=== PATIENT | female | born 1950 | race Caucasian/White ===

== ENCOUNTER 2016-07-03 13:10 | Emergency (ER) | payer MEDICARE ==
[~2016-07-03] VITALS: Ht 160 cm; Wt 90.9 kg
[2016-07-03] VITALS (9 sets, daily range): BP systolic 126–150; BP diastolic 59–72; PULSE 89–100; RESP 14–19; TEMP 97.8–98.2; O2SAT 94–98
[2016-07-03] MEDS ORDERED: SODIUM CHLOR 0.9% 1000 ML INJ 1,000 ML IV ONE (13:29)
[2016-07-03] MEDS ORDERED: SODIUM CHLORIDE 0.9% FLUSH 5 ML FLUSH IVF PRN (13:30)
[2016-07-03] MEDS ORDERED: PROCHLORPERAZINE INJ 10 MG/2 ML VIAL IVP ONE (13:30)
--- NOTE | 2016-07-03 13:45 | PD ---
HPI Chief Complaint: Headache Time Seen by Provider: 13:29 Travel History International Travel<30 days: No Contact w/Intl Traveler<30days: No Traveled to known affect area: No History of Present Illness HPI 66-year-old female came to the emergency room with history of sudden onset of headache 12 hours ago. Patient says that she was bent down and praying when she felt a sudden severe pain at the back of her neck and head and it radiated to the front. Since then the pain has persisted. Pain was 10 out of 10 at the time of onset. Currently the pain is 8. Patient took one hydrocodone as well as her daily medications last night. No history of nausea vomiting. No history of syncope. No history of tinnitus. Vital signs were stable otherwise. No history of fever or chills. Patient never had a pain like this before. She told me she does not have headache on and regular basis. She does have other muscular skeletal pain issues. [facility] Past Medical History Narrative Medical List of her past medical history as reviewed from the nursing note. Arthritis: Yes Asthma: Yes Hypertension: Yes Thyroid Disease: Yes (hypo) Social History Alcohol Use: No Tobacco Use: No Substance Use: No Allergies-Medications (Allergen,Severity, Reaction): Coded Allergies: No Known Allergies (Unverified , 07/03/16) Comments No known drug allergies. Narrative Medication Awaiting for the nurse to do mental conciliation for the medication history Review of Systems Except as stated in HPI: all other systems reviewed are Neg Physical Exam Narrative GENERAL: Awake, alert, anxious, mild distress SKIN: Warm and dry. HEAD: Atraumatic. Normocephalic. EYES: Pupils equal and round. No scleral icterus. No injection or drainage. ENT: No nasal bleeding or discharge. Mucous membranes pink and moist. NECK: Trachea midline. No JVD. No neck stiffness CARDIOVASCULAR: Regular rate and rhythm. No murmur appreciated. RESPIRATORY: No accessory muscle use. Clear to auscultation. Breath sounds equal bilaterally. GASTROINTESTINAL: Abdomen soft, non-tender, nondistended. Hepatic and splenic margins not palpable. MUSCULOSKELETAL: No obvious deformities. No clubbing. No cyanosis. No edema. NEUROLOGICAL: Awake and alert. No obvious cranial nerve deficits. Motor grossly within normal limits. Normal speech. PSYCHIATRIC: Appropriate mood and affect; insight and judgment normal. Data Data Last Documented VS Vital Signs Date Time Temp Pulse Resp B/P Pulse Ox O2 Delivery O2 Flow Rate FiO2 07/03/16 13:38 18 98 Room Air 07/03/16 13:27 98.0 99 149/72 Orders Complete Blood Count With Diff (07/03/16 13:29) Basic Metabolic Panel (Bmp) (07/03/16 13:29) Ct Brain W/O Iv Contrast(Rout) (07/03/16 13:29) Ecg Monitoring (07/03/16 13:29) Iv Access Insert/Monitor (07/03/16 13:29) Oximetry (07/03/16 13:29) Sodium Chloride 0.9% Flush (Ns Flush) (07/03/16 13:30) Prochlorperazine Inj (Compazine Inj) (07/03/16 13:30) Sodium Chlor 0.9% 1000 Ml Inj (Ns 1000 M (07/03/16 13:29) Mri Brain W&W/O Contrast (07/03/16 ) Mra Brain W/O Contrast (Cow) (07/03/16 ) Prothrombin Time / Inr (Pt) (07/03/16 14:11) Type And Screen (07/03/16 14:14) Gadodiamide Pf Inj (Omniscan Pf Inj) (07/03/16 14:53) Labs Laboratory Tests Test 07/03/16 07/03/16 13:39 14:21 White Blood Count 10.1 TH/MM3 Red Blood Count 4.93 MIL/MM3 Hemoglobin 14.2 GM/DL Hematocrit 42.4 % Mean Corpuscular Volume 85.9 FL Mean Corpuscular Hemoglobin 28.8 PG Mean Corpuscular Hemoglobin 33.6 % Concent Red Cell Distribution Width 13.5 % Platelet Count 313 TH/MM3 Mean Platelet Volume 8.9 FL Neutrophils (%) (Auto) 80.1 % Lymphocytes (%) (Auto) 13.7 % Monocytes (%) (Auto) 5.5 % Eosinophils (%) (Auto) 0.2 % Basophils (%) (Auto) 0.5 % Neutrophils # (Auto) 8.1 TH/MM3 Lymphocytes # (Auto) 1.4 TH/MM3 Monocytes # (Auto) 0.6 TH/MM3 Eosinophils # (Auto) 0.0 TH/MM3 Basophils # (Auto) 0.0 TH/MM3 CBC Comment DIFF FINAL Differential Comment Sodium Level 137 MEQ/L Potassium Level 4.0 MEQ/L Chloride Level 105 MEQ/L Carbon Dioxide Level 22.6 MEQ/L Anion Gap 9 MEQ/L Blood Urea Nitrogen 14 MG/DL Creatinine 1.00 MG/DL Estimat Glomerular Filtration 55 ML/MIN Rate Random Glucose 113 MG/DL Calcium Level 8.8 MG/DL Prothrombin Time 11.0 SEC Prothromb Time International 1.0 RATIO Ratio Blood Type B POSITIVE Antibody Screen NEGATIVE Blood Bank Comment MDM Medical Decision Making Medical Screen Exam Complete: Yes Emergency Medical Condition: Yes Medical Record Reviewed: Yes Differential Diagnosis Intracranial bleed, subarachnoid bleed, headache NOS Narrative Course 1:44 PM awaiting for the blood test result and the CAT scan to be done and resulted. I have given her Compazine and IV fluid for the headache. 2:12 PM radiologist called me to let me note that the CT shows intracranial mass with bleed. As per the radiologist it could be either a bleed from the mass or a large aneurysm. He recommends an MRI with and without contrast of the brain plus and MRA. I have put in the order. I put a call out for the neurosurgeon and the specialties operator. I will discuss this with the patient as well as her son. 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 I have been in touch with the Neurosurgeon over the phone on numerous occasions regarding this case before and after the MRI. I have been updating the patient and her about these conversations and answering all their questions to the aminah of my ability. Recently I was told by the unit manager [employer] that Dr. Koenig from neurosurgery would like this patient to be transferred to [facility] in [place]. He spoke with the neurosurgeon there who has accepted the case. The neurosurgeon is Dr. Malik I was told. Patient will be transferred by ground. She continues to be hemodynamically stable and GCS of 15. All this has been mentioned to the patient and she is been kept up-to-date about the progress of her case. Critical Care Narrative Aggregate critical care time was 75 minutes. Time to perform other separately billable procedures was not included in the critical care time. My time did not include minutes spent treating any other patients simultaneously or on activities that did not directly contribute to the patient's treatment. The services I provided to this patient were to treat and/or prevent clinically significant deterioration that could result in: Headache, intracranial bleed, large AV malformation, transfer I provided critical care services requiring my management, as noted below: Chart data review, documentation time, medication orders and management, vital sign assessments/reviewing monitor data, ordering and reviewing lab tests, ordering and interpreting/reviewing x-rays and diagnostic studies, care of the patient and discussion of the patient with the admitting physicians. Procedures EKG Prior to Arrival: No Physician Communication Physician Communication Dr. Koenig Diagnosis Primary Impression: Intracranial mass Additional Impressions: Headache Qualified Code: G44.53 - Primary thunderclap headache Subarachnoid hemorrhage Disposition: 70 TRANSFER TO OTHER FACILITY Khalif Jara MD Jul 03, 2016 13:45
[2016-07-03 13:56] LABS: AUTOMATED NEUTROPHIL # 8.1 TH/MM3 (1.8-7.7); BASOPHIL % 0.5 % (0.0-2.0); EOSINOPHIL % 0.2 % (0.0-4.0); HEMATOCRIT 42.4 % (35.0-46.0); HEMO FLAGS DIFF FINAL; LYMPH % 13.7 % (9.0-44.0); LYMPHOCYTE # 1.4 TH/MM3 (1.0-4.8); MEAN CELL VOLUME 85.9 FL (80.0-100.0); MEAN CORPUSCULAR HEMOGLOBIN 28.8 PG (27.0-34.0); MEAN CORPUSCULAR HGB CONC 33.6 % (32.0-36.0); MONO % 5.5 % (0.0-8.0); NEUT % 80.1 % (16.0-70.0); PLATELET COUNT 313 TH/MM3 (150-450); RED BLOOD COUNT 4.93 MIL/MM3 (4.00-5.30); RED CELL DISTRIBUTION WIDTH 13.5 % (11.6-17.2); WHITE BLOOD COUNT 10.1 TH/MM3 (4.0-11.0)
[2016-07-03 14:09] LABS: BICARBONATE 22.6 MEQ/L (21.0-32.0)
--- NOTE | 2016-07-03 14:26 | RADRPT ---
EXAM DATE/TIME: 07/03/2016 13:45 [facility] COMPARISON: No previous studies available for comparison. INDICATIONS : Posterior head and neck pain with dizziness and nausea for 1 day. RADIATION DOSE: 56.77 CTDIvol (mGy) MEDICAL HISTORY : Hypertension. SURGICAL HISTORY : None. ENCOUNTER: Initial ACUITY: 1 day PAIN SCALE: 10/10 LOCATION: posterior cranial TECHNIQUE: Multiple contiguous axial images were obtained of the head. Using automated exposure control and adj ustment of the mA and/or kV according to patient size, radiation dose was kept as low as reasonably a chievable to obtain optimal diagnostic quality images. FINDINGS: There is a hyperdense mass like density within the right frontal lobe with scattered calcifications m edially. This lesion measures at least 4.5 x 4.3 cm. There is also extension of this lesion into the extra-axial spaces along the anterior aspect of the right middle cranial fossa. This particular exte nsion measures 2.6 x 2.5 cm. There is also extension into the extra-axial spaces within the frontal lobes bilaterally (right more prominent than left) and measuring 5 mm in thickness in the right front al region and 3 mm in thickness in the left frontal region. There is also hyperdensity within the exp ected region of the right sylvian fissure raising the possibility of acute subarachnoid hemorrhage or extension of mass. Differential diagnosis includes neoplasm, vascular malformation or ruptured aneur ysm. MRI of the brain with and without contrast as well as MRA would be helpful for further characte rization of this finding. There is subfalcine herniation to the left measuring 5 mm. The findings we re discussed with Dr. Jara at 2:11pm on 07/03/2016. CONCLUSION: Hyperdense mass like lesion within the right frontal lobe with extension to the extra-axial spaces al bryan the anterior aspect of the right middle cranial fossa and within the frontal regions bilaterally as described above. There is also hyperdensity within the expected region of the sylvian fissure on t he right. Differential diagnosis includes intra-axial neoplasm with spread to the extra-axial spaces, vascular malformation or ruptured aneurysm with associated bleeding into the extra-axial spaces. T here is subfalcine herniation to the left measuring 5 mm. MRI of the brain with and without contrast as well as MRA of the brain may be helpful for further evaluation of this finding. The findings wer e discussed with Dr. Jara at 2:11pm on 07/03/2016. Will Davison MD on July 03, 2016 at 13:56 Board Certified Radiologist. This report was verified electronically.
[2016-07-03] MEDS ORDERED: GADODIAMIDE PF 287 MG/ML 5 ML VIAL (for RAD MRI) IV ONE (14:53)
[2016-07-03] MEDS ORDERED: GADODIAMIDE PF 287 MG/ML 20 ML VIAL (for RAD MRI) IV ONE (15:39)
[2016-07-03] MEDS ORDERED: ONDANSETRON HCL 4 MG/2 ML VIAL IV PUSH ONE (16:00)
[2016-07-03] MEDS ORDERED: MORPHINE SULFATE 4 MG/ML INJ IV PUSH ONE (16:00)
--- NOTE | 2016-07-03 16:53 | RADRPT ---
EXAM DATE/TIME: 07/03/2016 15:04 [facility] COMPARISON: CT BRAIN W/O CONTRAST, July 03, 2016, 13:45. INDICATIONS : Cephalgia. Abnormal CT. CONTRAST: 18 cc Omniscan (gadodiamide) IV MEDICAL HISTORY : Hypertension. SURGICAL HISTORY : Cyst removed from tailbone, breast reduction ENCOUNTER: Initial ACUITY: 1 day PAIN SCORE: 3/10 LOCATION: cranial TECHNIQUE: Multiplanar, multisequence MRI of the brain was performed both prior to and following the administrat ion of paramagnetic contrast. FINDINGS: There is an arteriovenous malformation with nidus measuring 2.8 x 2.4 CM in the right frontal lobe di rectly adjacent to the frontal horn of right lateral ventricle. The venous drainage is via both the s phenoparietal sinus as well as a cortical draining vein anteriorly to the superior sagittal sinus. Th e internal cerebral vein and straight sinus are normal in caliber. There are multiple venous pseudoan eurysms present the largest in the sphenoparietal sinus measuring 1.2 cm. There is mass effect from t he arterial venous malformation on the frontal horn as well as minimal midline shift from right to le ft but no signs of herniation. Diffusion weighted images demonstrate no abnormality. Posterior fossa structures are unremarkable. CONCLUSION: 1. 2.8 cm terminus now formation the right frontal lobe with venous changes above. There is mass effe ct and midline shift but no evidence of acute hemorrhage. Ehsan Ruano MD on July 03, 2016 at 16:43 Board Certified Radiologist. This report was verified electronically.
--- NOTE | 2016-07-03 16:58 | RADRPT ---
EXAM DATE/TIME: 07/03/2016 15:04 [facility] COMPARISON: No previous studies available for comparison. INDICATIONS : Cephalgia. Abnormal CT. MEDICAL HISTORY : Hypertension. SURGICAL HISTORY : Cyst removed from tailbone, breast reduction ENCOUNTER: Initial ACUITY: 1 day PAIN SCORE: 3/10 LOCATION: cranial Please note a normal MRA of the brain does not entirely exclude the possibility of a small aneurysm, nor the possibility of distal intracranial vessel disease. TECHNIQUE: 3D time of flight MRA was performed. Source images, multiplanar STS MIP, and 3D volume MIP reconstru ctions were reviewed. FINDINGS: There is arteriovenous malformation with predominate blood supply via the anterior tree of artery on the right side without evidence of arterial aneurysm. The venous drainage is to the sphenoparietal si nus as well as to the cortical veins and superior sagittal sinus with multiple venous pseudoaneurysms present. Largest pseudoaneurysm measures 1.2 cm. The left middle cerebral artery territory appears n ormal. Examination of posterior fossa also demonstrates no evidence of aneurysm or vascular malformation. Th e vertebral arteries are codominant. There are patent posterior communicating arteries bilaterally. CONCLUSION: 1. 2.8 cm venous malformation in the right frontal lobe with arterial supply via the anterior cerebra l artery. Venous drainage is superficial to the sphenoparietal sinus and cortical veins to the superi or sagittal sinus. 2. No arterial aneurysms though multiple venous pseudoaneurysms. Ehsan Ruano MD on July 03, 2016 at 16:52 Board Certified Radiologist. This report was verified electronically.
[2016-07-03] MEDS ORDERED: niCARdipine INJ 25 MG in SODIUM CHLOR 0.9% 250 ML INJ 250 ML IV SCH (17:15)
--- NOTE | 2016-07-03 19:39 | PD.CONS ---
History of Present Illness Service Neurosurgery Consult Requested By Emergency room physicians Reason for Consult Subarachnoid hemorrhage Primary Care Physician Jeimy Yanes MD Diagnoses: History of Present Illness Pleasant 66-year-old lady who states that last evening she experienced acute onset of extremely severe headache accompanied by nausea without emesis. She was not straining or coughing excessively prior to the event. She has had no fevers or chills. No complaint of blurred vision, diplopia, hearing loss, tinnitus. No weakness numbness or paresthesias in the extremities. She presented to the emergency room today with initial CT scan revealing findings significant for primarily right frontotemporal subarachnoid hemorrhage and AVM. She denies history of previous headaches or neurologic disorders. Review of Systems Constitutional: DENIES: Fatigue, Fever Eyes: DENIES: Blurred vision, Diplopia, Vision loss Ears, nose, mouth, throat: DENIES: Vertigo Respiratory: DENIES: Cough, Wheezing Cardiovascular: DENIES: Chest pain, Palpitations Gastrointestinal: COMPLAINS OF: Nausea, DENIES: Abdominal pain, Constipation, Diarrhea, Vomiting Musculoskeletal: DENIES: Joint pain, Muscle aches Neurologic: COMPLAINS OF: Headache Psychiatric: DENIES: Anxiety, Confusion Past Family Social History Allergies: Coded Allergies: No Known Allergies (Unverified , 07/03/16) Past Medical History Asthma arthritis Hypothyroidism Hypertension Past Surgical History No major surgeries reported Reported Medications Antihypertensive medications Family History Positive CVA in her grandmother. No history of aneurysms, neurologic disorders. No history of coronary artery disease Social History Does not smoke cigarettes or drink alcohol Physical Exam Vital Signs Vital Signs Date Time Temp Pulse Resp B/P Pulse Ox O2 Delivery O2 Flow Rate FiO2 07/03/16 19:12 91 16 135/68 100 07/03/16 18:53 95 18 126/59 94 Room Air 07/03/16 18:21 92 18 135/63 95 Room Air 07/03/16 17:59 89 18 140/66 96 Room Air 07/03/16 16:57 97 18 135/62 94 Room Air 07/03/16 16:01 98.2 92 19 147/59 96 Room Air 07/03/16 13:38 18 98 Room Air 07/03/16 13:27 98.0 99 18 149/72 95 Room Air 07/03/16 13:23 95 18 96 Room Air 07/03/16 13:12 97.8 100 14 150/71 94 Room Air Physical Exam GENERAL: This is a well-nourished, well-developed patient, in no apparent distress. SKIN: No rashes, ecchymoses or lesions. HEAD: Normocephalic, nontender EYES: Sclerae are clear and nonicteric. No periorbital edema or ecchymosis ENT: No CSF otorrhea or rhinorrhea. No facial fracture or deformity NECK: Supple, mild tenderness no meningeal signs. CARDIOVASCULAR: Regular rate and rhythm without murmurs, gallops, or rubs. RESPIRATORY: Clear to auscultation. Breath sounds equal bilaterally. No wheezes , rales, or rhonchi. GASTROINTESTINAL: Abdomen soft, non-tender, nondistended. No hepato-splenomegaly , or palpable masses. No guarding. Normal bowel sounds MUSCULOSKELETAL: Extremities without cyanosis, or edema. No joint tenderness, effusion, or edema noted. No calf tenderness. Posterior tibial pulse 2+ bilateral NEUROLOGICAL: Awake and alert Oriented X 3 Speech is clear Conversant and appropriate Follow simple commands well Answers questions appropriately Reasonable judgment and insight Recent and remote memory are intact No evidence of anxiety or depression Pupils are equal and reactive to accommodation. Extra-ocular movements, visual thurman to confrontation, facial sensorimotor, tongue, palate, sternocleidomastoid testing, hearing to finger rub testing on the right but not the left, and bilateral shoulder shrug are all intact. Sensation is intact to light touch in all extremities Strength normal major flexion and extension groups all extremities Joaquin's absent bilaterally No ankle clonus Plantar responses absent bilateral Fine motor movements intact upper extremities Laboratory Laboratory Tests Test 07/03/16 07/03/16 13:39 14:21 White Blood Count 10.1 Red Blood Count 4.93 Hemoglobin 14.2 Hematocrit 42.4 Mean Corpuscular Volume 85.9 Mean Corpuscular Hemoglobin 28.8 Mean Corpuscular Hemoglobin 33.6 Concent Red Cell Distribution Width 13.5 Platelet Count 313 Mean Platelet Volume 8.9 Neutrophils (%) (Auto) 80.1 Lymphocytes (%) (Auto) 13.7 Monocytes (%) (Auto) 5.5 Eosinophils (%) (Auto) 0.2 Basophils (%) (Auto) 0.5 Neutrophils # (Auto) 8.1 Lymphocytes # (Auto) 1.4 Monocytes # (Auto) 0.6 Eosinophils # (Auto) 0.0 Basophils # (Auto) 0.0 CBC Comment DIFF FINAL Differential Comment Sodium Level 137 Potassium Level 4.0 Chloride Level 105 Carbon Dioxide Level 22.6 Anion Gap 9 Blood Urea Nitrogen 14 Creatinine 1.00 Estimat Glomerular Filtration 55 Rate Random Glucose 113 Calcium Level 8.8 Prothrombin Time 11.0 Prothromb Time International 1.0 Ratio Blood Type B POSITIVE Antibody Screen NEGATIVE Blood Bank Comment Result Diagram: 07/03/16 1339 07/03/16 [address] scan of the head as well as MRI and MRA of the brain images are all reviewed by the undersigned. Agree with findings as noted below. Mostly local mass effect with mild midline shift. Cisterns are not effaced and no significant ventricular asymmetry. Head CT 07/03/16 1329 Signed Impressions: Service Date/Time: June 13:45 - CONCLUSION: Hyperdense mass like lesion within the right frontal lobe with extension to the extra- axial spaces along the anterior aspect of the right middle cranial fossa and within the frontal regions bilaterally as described above. There is also hyperdensity within the expected region of the sylvian fissure on the right. Differential diagnosis includes intra-axial neoplasm with spread to the extra-axial spaces, vascular malformation or ruptured aneurysm with associated bleeding into the extra-axial spaces. There is subfalcine herniation to the left measuring 5 mm. MRI of the brain with and without contrast as well as MRA of the brain may be helpful for further evaluation of this finding. The findings were discussed with Dr. Jara at 2:11pm on 07/03/2016. Will Davison MD Head Magnetic Resonance Angiography 07/03/16 0000 Signed Impressions: Service Date/Time: June 15:04 - CONCLUSION: 1. 2.8 cm venous malformation in the right frontal lobe with arterial supply via the anterior cerebral artery. Venous drainage is superficial to the sphenoparietal sinus and cortical veins to the superior sagittal sinus. 2. No arterial aneurysms though multiple venous pseudoaneurysms. Ehsan Ruano MD Brain MRI 07/03/16 0000 Signed Impressions: Service Date/Time: June 15:04 - CONCLUSION: 1. 2.8 cm terminus now formation the right frontal lobe with venous changes above. There is mass effect and midline shift but no evidence of acute hemorrhage. Ehsan Ruano MD Assessment and Plan Assessment and Plan Impression: 1. Right frontal arteriovenous malformation with imaging findings as noted above. 2. Mild right frontotemporal subarachnoid hemorrhage 3. History of hypertension Plan: Findings were discussed at length with the patient and her family in the emergency room. Gen. treatment options discussed. After transfer to a tertiary care facility for further evaluation and treatment discussed, and she is in agreement with this plan. I discussed the patient with neurosurgery at [facility], were patient has been accepted for transfer this evening. Nicardipine IV infusion ordered as needed for controlled systolic blood pressure to less than 130. Patient appears neurologically stable for transfer Christos Koenig MD Jul 03, 2016 19:39
[2016-07-18] MEDS ORDERED: TIZA4CAP3 PO (16:34)
[2016-07-18] MEDS ORDERED: BUDE0.5S NEB (16:34)
[2016-07-18] MEDS ORDERED: LEVO112T2 PO (16:34)
[2016-07-18] MEDS ORDERED: OXYC1CAP PO (16:34)
[2016-07-18] MEDS ORDERED: FEXO60TA PO (16:34)
[2016-07-18] MEDS ORDERED: ACET-703 PO (16:34)
[2016-07-18] MEDS ORDERED: OMEP20TA PO (16:34)
[2016-07-18] MEDS ORDERED: COLA100C3 PO (16:34)
[2016-07-18] MEDS ORDERED: MELA3TAB PO (16:34)
[2016-07-18] MEDS ORDERED: MELA3CAP (16:34)
[2016-07-18] MEDS ORDERED: LEVE500 PO (16:34)
[2016-07-18] MEDS ORDERED: AMLO10 PO (16:34)
[2016-07-18] MEDS ORDERED: ARTIDRO EACH EYE (16:34)
[2016-07-18] MEDS ORDERED: LOSA100T PO (16:34)
[2016-07-18] MEDS ORDERED: DEXA2TAB PO (16:34)
[2016-07-18] MEDS ORDERED: BACI500O61 TOPICAL (16:34)
[2016-07-18] MEDS ORDERED: LABE200T2 PO (16:34)
[2016-07-18] MEDS ORDERED: IPRASOL INH (16:34)
[2016-07-18] MEDS ORDERED: MILKSUS PO (16:34)
[2016-07-29] MEDS ORDERED: Walker with seat (13:02)
[2016-07-29] MEDS ORDERED: WHEEMIS3 (13:02)
[2016-07-29] MEDS ORDERED: COMMODE 3-IN-11 MIS (13:02)
[2016-07-31] MEDS ORDERED: LABE100T2 PO (09:13)
[2016-07-31] MEDS ORDERED: BACI500O2 TOP (09:13)
[2016-07-31] MEDS ORDERED: Artificial Tears Opth Soln EACH EYE (09:13)
[2016-07-31] MEDS ORDERED: DOCU1CAP39 PO (09:13)
[2016-07-31] MEDS ORDERED: AMLO10 PO (09:13)
[2016-07-31] MEDS ORDERED: SYNT112T PO (09:13)
[2016-07-31] MEDS ORDERED: PANT20 PO (09:13)
[2016-07-31] MEDS ORDERED: LEVE500 PO (09:13)
[2016-07-31] MEDS ORDERED: VENTAER INH (09:14)
== END 2016-07-03 19:15 | disposition short-term general hospital (02) ==
LOC: NEPC 13:10 → NEDA 14:56 → UNDOADMIN 14:56 → UNDODISIN 19:07 → NEDA 19:15
DX: G44.53 Primary thunderclap headache (principal); I10 Essential (primary) hypertension; J45.909 Unspecified asthma, uncomplicated; Q28.3 Other malformations of cerebral vessels; I60.9 Nontraumatic subarachnoid hemorrhage, unspecified
CPT/HCPCS: 70450; 70544; 70553; 80048; 85025; 85610; 86850; 86900; 86901; 96361; 96374; 99291; 99292; A9579; J0780; J2270; J2405; J7030; J7050

== ENCOUNTER 2016-08-05 15:39 | Emergency (ER) | payer MEDICARE ==
[~2016-08-05] VITALS: Ht 160 cm; Wt 87.5 kg
[~2016-08-05 15:39] MED LIST: ACET-703 PO; AMLO10 PO; Artificial Tears Opth Soln EACH EYE; BACI500O2 TOP; BUDE0.5S NEB; COMMODE 3-IN-11 MIS; DEXA2TAB PO; DOCU1CAP39 PO; FEXO60TA PO; IPRASOL INH; LABE100T2 PO; LABE200T2 PO; LEVE500 PO; LOSA100T PO; MELA3TAB PO; MILKSUS PO; OXYC1CAP PO; PANT20 PO; SYNT112T PO; TIZA4CAP3 PO; VENTAER INH; WHEEMIS3; Walker with seat
[2016-08-05 15:41] VITALS: BP 135/68; PULSE 97; RESP 16; TEMP 97.6; O2SAT 95
--- NOTE | 2016-08-05 16:33 | PD ---
HPI Chief Complaint: Pain: Acute or Chronic Time Seen by Provider: 16:25 Travel History International Travel<30 days: No Contact w/Intl Traveler<30days: No Traveled to known affect area: No History of Present Illness HPI Patient is a 66-year-old female presenting to emergency evaluation of a right leg DVT. Patient reports that she developed pain in her leg on , she described as throbbing. She reports the pain is a 3-4 out of 10 and constant. Patient had an outpatient ultrasound ordered by her primary doctor, Dr. Suazo. Patient presented to the emergency department with a report that shows her right lower leg DVT. Patient denies any chest pain, shortness of breath, palpitations. Patient had surgery approximately one month ago and had been in rehabilitation. PFSH Past Medical History Arthritis: Yes Asthma: Yes (allergy induced) Autoimmune Disease: No Anxiety: No Depression: No Heart Rhythm Problems: No Cancer: No High Cholesterol: No Chemotherapy: No Chest Pain: No Congestive Heart Failure: No COPD: No Cerebrovascular Accident: Yes Diabetes: No Endocrine: Yes GERD: No Genitourinary: No Hiatal Hernia: No Hypertension: Yes Immune Disorder: No Neurologic: Yes (frontal AVM grade 2) Psychiatric: No Reproductive: No Respiratory: Yes Migraines: No Radiation Therapy: No Seizures: Yes Sleep Apnea: No Thyroid Disease: Yes (hypothyroidism) Ulcer: No ?: Not Past Surgical History Abdominal Surgery: No AICD: No Arteriovenous Shunt: No Cardiac Surgery: No Ear Surgery: No Endocrine Surgery: No Eye Surgery: No Genitourinary Surgery: No Gynecologic Surgery: No Insulin Pump: No Joint Replacement: No Neurologic Surgery: Yes (embolism of AVM, status post craniotomy) Oral Surgery: No Pacemaker: No Thoracic Surgery: No Other Surgery: Yes (pilonidal cyst, breast reduction) Social History Alcohol Use: No Tobacco Use: No Substance Use: No Allergies-Medications (Allergen,Severity, Reaction): Coded Allergies: Avocado (Verified Allergy, Mild, Nausea/Vomiting, 08/05/16) Reported Meds & Prescriptions Reported Meds & Active Scripts Active Ventolin Hfa 18 GM Inh (Albuterol Sulfate) 90 Mcg/Act Aer 2 Puff INH Q4-6H PRN 30 Days Synthroid (Levothyroxine Sodium) 112 Mcg Tab 112 Mcg PO 0600 30 Days Keppra (Levetiracetam) 500 Mg Tab 500 Mg PO Q12HR 30 Days continue until stopped by Dr. Malik Labetalol (Labetalol HCl) 100 Mg Tab 25 Mg PO BID 14 Days check blood pressure and heart rate 30 min prior to giving hold medication if systolic blood pressure < 110 or heart rate <70 Dok (Docusate Sodium) 100 Mg Cap 100 Mg PO BID 30 Days Bacitracin Topical 500 Unit/Gm Oint 1 Applic TOP Q12HR 10 Days [Artificial Tears Opth Soln] 300 DROP/15 ML Soln 2 Drop EACH EYE QID PRN 30 Days Norvasc (Amlodipine Besylate) 10 Mg Tab 10 Mg PO DAILY 30 Days Reported Vitamin D (Ergocalciferol) 50,000 Unit Cap 50,000 Units PO Q7D Tylenol Extra Strength (Acetaminophen) 500 Mg Tab 500 Mg PO Q4HR PRN Review of Systems Except as stated in HPI: all other systems reviewed are Neg Musculoskeletal: Positive: Myalgias, Edema, Pain Physical Exam Narrative GENERAL: Well-developed, well-nourished, alert female. Resting comfortably in no acute distress. SKIN: Warm and dry. HEAD: Atraumatic. Normocephalic. EYES: Pupils equal and round. No scleral icterus. No injection or drainage. ENT: No nasal bleeding or discharge. Mucous membranes pink and moist. NECK: Trachea midline. No JVD. CARDIOVASCULAR: Regular rate and rhythm. No murmur appreciated. RESPIRATORY: No accessory muscle use. Clear to auscultation. Breath sounds equal bilaterally. GASTROINTESTINAL: Abdomen soft, non-tender, nondistended. Hepatic and splenic margins not palpable. MUSCULOSKELETAL: No obvious deformities. No clubbing. No cyanosis. No edema. Positive pedal pulses bilaterally, positive Homans sign on the right. No erythema noted. NEUROLOGICAL: Awake and alert. No obvious cranial nerve deficits. Motor grossly within normal limits. Normal speech. PSYCHIATRIC: Appropriate mood and affect; insight and judgment normal. Data Data Last Documented VS Vital Signs Date Time Temp Pulse Resp B/P Pulse Ox O2 Delivery O2 Flow Rate FiO2 08/05/16 17:50 84 18 127/63 98 Room Air 08/05/16 15:41 97.6 Orders Complete Blood Count With Diff (08/05/16 16:10) Comprehensive Metabolic Panel (08/05/16 16:10) Act Partial Throm Time (Ptt) (08/05/16 16:10) Prothrombin Time / Inr (Pt) (08/05/16 16:10) Rivaroxaban (Xarelto) (08/05/16 19:15) Labs Laboratory Tests Test 08/05/16 16:26 White Blood Count 5.5 TH/MM3 Red Blood Count 4.01 MIL/MM3 Hemoglobin 12.2 GM/DL Hematocrit 36.2 % Mean Corpuscular Volume 90.2 FL Mean Corpuscular Hemoglobin 30.4 PG Mean Corpuscular Hemoglobin 33.7 % Concent Red Cell Distribution Width 16.2 % Platelet Count 236 TH/MM3 Mean Platelet Volume 8.1 FL Neutrophils (%) (Auto) 63.6 % Lymphocytes (%) (Auto) 21.9 % Monocytes (%) (Auto) 11.2 % Eosinophils (%) (Auto) 2.9 % Basophils (%) (Auto) 0.4 % Neutrophils # (Auto) 3.5 TH/MM3 Lymphocytes # (Auto) 1.2 TH/MM3 Monocytes # (Auto) 0.6 TH/MM3 Eosinophils # (Auto) 0.2 TH/MM3 Basophils # (Auto) 0.0 TH/MM3 CBC Comment DIFF FINAL Differential Comment Prothrombin Time 10.4 SEC Prothromb Time International 0.9 RATIO Ratio Activated Partial 24.4 SEC Thromboplast Time Sodium Level 143 MEQ/L Potassium Level 3.7 MEQ/L Chloride Level 108 MEQ/L Carbon Dioxide Level 23.9 MEQ/L Anion Gap 11 MEQ/L Blood Urea Nitrogen 15 MG/DL Creatinine 0.75 MG/DL Estimat Glomerular Filtration 77 ML/MIN Rate Random Glucose 82 MG/DL Calcium Level 8.9 MG/DL Total Bilirubin 0.8 MG/DL Aspartate Amino Transf 25 U/L (AST/SGOT) Alanine Aminotransferase 37 U/L (ALT/SGPT) Alkaline Phosphatase 64 U/L Total Protein 6.7 GM/DL Albumin 3.2 GM/DL MDM Medical Decision Making Medical Screen Exam Complete: Yes Emergency Medical Condition: Yes Interpretation(s) Vital Signs Date Time Temp Pulse Resp B/P Pulse Ox O2 Delivery O2 Flow Rate FiO2 08/05/16 15:41 97.6 97 16 135/68 95 Differential Diagnosis DVT versus coagulopathy versus hemorrhage versus PE versus other Narrative Course Patient is a 66-year-old female presenting to the emergency room for evaluation of a right leg DVT that was diagnosed as outpatient. Patient has been on bedrest, she had been diagnosed with a frontal AVM grade 2 and on July 07 underwent embolization of the AVM, on July 08 she had a craniotomy for resection of the right frontoparietal AVM. Patient subsequently went to [facility] and recently was discharged. Labs ordered and pending. Ultrasound of the right lower leg ordered and pending. Workup initiated in triage, care patient will be transferred to provider but a medical bed is available. Emily Fontaine Aug 05, 2016 16:33
[2016-08-05 17:03] LABS: AUTOMATED NEUTROPHIL # 3.5 TH/MM3 (1.8-7.7); BASOPHIL % 0.4 % (0.0-2.0); EOSINOPHIL # 0.2 TH/MM3 (0-0.4); EOSINOPHIL % 2.9 % (0.0-4.0); HEMATOCRIT 36.2 % (35.0-46.0); HEMO FLAGS DIFF FINAL; LYMPH % 21.9 % (9.0-44.0); LYMPHOCYTE # 1.2 TH/MM3 (1.0-4.8); MEAN CELL VOLUME 90.2 FL (80.0-100.0); MEAN CORPUSCULAR HEMOGLOBIN 30.4 PG (27.0-34.0); MEAN CORPUSCULAR HGB CONC 33.7 % (32.0-36.0); MONO % 11.2 % (0.0-8.0); NEUT % 63.6 % (16.0-70.0); PLATELET COUNT 236 TH/MM3 (150-450); RED BLOOD COUNT 4.01 MIL/MM3 (4.00-5.30); RED CELL DISTRIBUTION WIDTH 16.2 % (11.6-17.2); WHITE BLOOD COUNT 5.5 TH/MM3 (4.0-11.0)
[2016-08-05 17:08] LABS: APTT (PATIENT) 24.4 SEC (24.3-30.1); INTERNATIONAL NORMALIZED RATIO 0.9 RATIO; PROTHROMBIN TIME - PATIENT 10.4 SEC (9.8-11.6)
[2016-08-05 17:34] LABS: ALKALINE PHOSPHATASE 64 U/L (45-117); TOTAL BILIRUBIN ADULT 0.8 MG/DL (0.2-1.0)
[2016-08-05] MEDS ORDERED: ERGO1CAP10 PO (17:35)
[2016-08-05 17:47] LABS: ALT (GPT) 37 U/L (10-53); ANION GAP 11 MEQ/L (5-15); AST (GOT) 25 U/L (15-37); BICARBONATE 23.9 MEQ/L (21.0-32.0); BLOOD UREA NITROGEN 15 MG/DL (7-18); CHLORIDE 108 MEQ/L (98-107); GLOMERULAR FILTRATION RATE 77 ML/MIN (>89); POTASSIUM 3.7 MEQ/L (3.5-5.1); SODIUM (NA) 143 MEQ/L (136-145)
[2016-08-05 17:50] VITALS: BP 127/63; PULSE 84; RESP 18; O2SAT 98
[2016-08-05] MEDS ORDERED: RIVAROXABAN 20 MG TAB PO ONE (19:15)
--- NOTE | 2016-08-05 19:16 | PD ---
Physical Exam Narrative Pt was initially seen at triage and send to medical bed when available. 66yo F with PMH of recent brain surgery s/p rehab presents to the ED with DVT in right calf. Pt has been having right calf pain for 3-4 days and had ultrasound of right lower extremity that showed subacute occlusive DVT in peroneal veins of the right calf. Pt denies any chest pain, sob, fever, n/v, abdominal pain, focal weakness or numbness. GENERAL: 66yo F not in distress. SKIN: Warm and dry. NECK: Trachea midline. No JVD. CARDIOVASCULAR: Regular rate and rhythm. No murmur appreciated. RESPIRATORY: No accessory muscle use. Clear to auscultation. Breath sounds equal bilaterally. GASTROINTESTINAL: Abdomen soft, non-tender, nondistended. MUSCULOSKELETAL: RLE: +TTP right calf. No erythema or signs of infection. Distal pulses intact. NEUROLOGICAL: Awake and alert. No obvious cranial nerve deficits. Motor grossly within normal limits. Normal speech. PSYCHIATRIC: Appropriate mood and affect; insight and judgment normal. Pt was given xarelto 20mg PO in the ED. I discussed this case with Dr. Laws and he states that the patient can follow up with him tomorrow in his office and he will give him the xarelto in his office. States I do not have to give any prescriptions. Return precautions given. Data Data Last Documented VS Vital Signs Date Time Temp Pulse Resp B/P Pulse Ox O2 Delivery O2 Flow Rate FiO2 08/05/16 17:50 84 18 127/63 98 Room Air 08/05/16 15:41 97.6 Orders Complete Blood Count With Diff (08/05/16 16:10) Comprehensive Metabolic Panel (08/05/16 16:10) Act Partial Throm Time (Ptt) (08/05/16 16:10) Prothrombin Time / Inr (Pt) (08/05/16 16:10) Rivaroxaban (Xarelto) (08/05/16 19:15) Labs Laboratory Tests Test 08/05/16 16:26 White Blood Count 5.5 TH/MM3 Red Blood Count 4.01 MIL/MM3 Hemoglobin 12.2 GM/DL Hematocrit 36.2 % Mean Corpuscular Volume 90.2 FL Mean Corpuscular Hemoglobin 30.4 PG Mean Corpuscular Hemoglobin 33.7 % Concent Red Cell Distribution Width 16.2 % Platelet Count 236 TH/MM3 Mean Platelet Volume 8.1 FL Neutrophils (%) (Auto) 63.6 % Lymphocytes (%) (Auto) 21.9 % Monocytes (%) (Auto) 11.2 % Eosinophils (%) (Auto) 2.9 % Basophils (%) (Auto) 0.4 % Neutrophils # (Auto) 3.5 TH/MM3 Lymphocytes # (Auto) 1.2 TH/MM3 Monocytes # (Auto) 0.6 TH/MM3 Eosinophils # (Auto) 0.2 TH/MM3 Basophils # (Auto) 0.0 TH/MM3 CBC Comment DIFF FINAL Differential Comment Prothrombin Time 10.4 SEC Prothromb Time International 0.9 RATIO Ratio Activated Partial 24.4 SEC Thromboplast Time Sodium Level 143 MEQ/L Potassium Level 3.7 MEQ/L Chloride Level 108 MEQ/L Carbon Dioxide Level 23.9 MEQ/L Anion Gap 11 MEQ/L Blood Urea Nitrogen 15 MG/DL Creatinine 0.75 MG/DL Estimat Glomerular Filtration 77 ML/MIN Rate Random Glucose 82 MG/DL Calcium Level 8.9 MG/DL Total Bilirubin 0.8 MG/DL Aspartate Amino Transf 25 U/L (AST/SGOT) Alanine Aminotransferase 37 U/L (ALT/SGPT) Alkaline Phosphatase 64 U/L Total Protein 6.7 GM/DL Albumin 3.2 GM/DL MDM Supervised Visit with ZAC: Yes Diagnosis Primary Impression: DVT (deep venous thrombosis) Qualified Code: I82.4Z1 - Deep vein thrombosis (DVT) of distal vein of right lower extremity, unspecified chronicity Referrals: Reji Lakhani MD Patient Instructions: General Instructions Departure Forms: Tests/Procedures Additional Instruction: Please follow up with Dr. Laws tomorrow. Return to the ED if you have any chest pain, sob or any other concerning symptoms. Med/Other Pt SpecificInfo: No Change to Meds Disposition: 01 DISCHARGE HOME Condition: Stable Bebe Lopez DO Aug 05, 2016 19:16
--- NOTE | 2016-08-05 20:37 | HHI.PR ---
Subjective Remarks I saw patient in er who had dvt based on out patient ultrasound of perineal vein and received in er one dose of xerelto 20mg . Patient complained of some pain and swelling of rt leg but according to has had pain in leg over 1 week . Rate of pain 3 over 10 . Patient had recent AVM surgery at [facility] and did have small subarachoid hemmorage. Patient will follow up tomorrow with her PCP and we will try and contact neurosurgery at [facility] if we can use xerelto and if not may consider IVC filter will discuss with patient PCP and patient and tomorrow and discharge from ER. Objective Vitals GENERAL: SKIN: Warm and dry. HEAD: Atraumatic. Normocephalic. EYES: Pupils equal and round. No scleral icterus. No injection or drainage. ENT: No nasal bleeding or discharge. Mucous membranes pink and moist. NECK: Trachea midline. No JVD. CARDIOVASCULAR: Regular rate and rhythm. RESPIRATORY: No accessory muscle use. Clear to auscultation. Breath sounds equal bilaterally. GASTROINTESTINAL: Abdomen soft, non-tender, nondistended. Hepatic and splenic margins not palpable. MUSCULOSKELETAL: Extremities without clubbing, cyanosis, or edema. Some pain on palpation mild swelling NEUROLOGICAL: Awake and alert. No obvious cranial nerve deficits. Motor grossly within normal limits. Five out of 5 muscle strength in the arms and legs. Normal speech. PSYCHIATRIC: Appropriate mood and affect; insight and judgment normal. Vital Signs Date Time Temp Pulse Resp B/P Pulse Ox O2 Delivery O2 Flow Rate FiO2 08/05/16 17:50 84 18 127/63 98 Room Air 08/05/16 15:41 97.6 97 16 135/68 95 Result Diagram: 08/05/16 1626 08/05/16 1626 Imaging DVT in perineal vein A/P Problem List: (1) DVT (deep venous thrombosis) Status: Acute Plan: follow up in office tomorrow Assessment and Plan as above Discharge Planning follow up in am. Problem Qualifiers (1) DVT (deep venous thrombosis): Qualified Code: I82.4Z1 - Deep vein thrombosis (DVT) of distal vein of right lower extremity, unspecified chronicity Reji Lakhani MD Aug 05, 2016 20:37
== END 2016-08-05 19:37 | disposition home or self-care (01) ==
LOC: NEPA 15:39
DX: I82.4Z1 Acute embolism and thrombosis of unspecified deep veins of right distal lower extremity (principal); E03.9 Hypothyroidism, unspecified; I10 Essential (primary) hypertension; Z86.73 Personal history of transient ischemic attack (TIA), and cerebral infarction without residual deficits
CPT/HCPCS: 80053; 85025; 85610; 85730